=== PATIENT | male | born 1970 | race Caucasian/White ===

== ENCOUNTER → 2019-02-20 14:42 | Outpatient (POV) | payer OTHER, SELFPAY ==
[2019-02-20 14:55] VITALS: BP 142/89; PULSE 89; RESP 18; O2SAT 99
--- NOTE | 2019-02-20 15:57 | HMH.PMCON ---
Assessment and Plan (1) Bilateral knee pain Current visit: Yes Status: Chronic Category: Medical Code(s): M25.561 - Pain in right knee; M25.562 - Pain in left knee (2) Arthritis of both knees Current visit: Yes Status: Chronic Category: Medical Code(s): M17.0 - Bilateral primary osteoarthritis of knee - Assessment and plan all Dx Assessment and Plan for all problems:: We will schedule a geniculate block for the patient bilaterally. Patient may be a rhizotomy candidate. I will follow-up with the patient after his injection reassess his symptoms at that time. Patient and I discussed the diagnostic nature of this. He understands. He is been instructed to call the office if he has any issues prior to his next appointment. Dr. Wolf has reviewed this note and agrees with this plan of care. This note was dictated using voice recognition software and may contain errors or omissions HPI - Data of Consult Consult date: 02/20/19 Requesting Physician: Lennie Perez APRN Primary Care Provider: Susan Dorsey MD - Consult Narrative Reason for consult: Arthritis, bilateral knee pain History of present illness: Mr. Carrasco is a 48 year old male who presents today for consultation in regards to his low back and knee pain. Patient is having quite a bit of knee pain especially when he sitting. Patient states bracing does help. Patient had a discectomy in 1994 he does have some low back pain. He states his worst pain is his bilateral knee pain. Patient is been seen by Ortho and was given injections with no real relief. Patient was not a candidate for surgery. He rates his pain today a 5 out of 10. Patient is tried and failed physical therapy along with TENS unit gabapentin Motrin and Relafen. CC: Lennie Perez APRN [facility] History I have reviewed the patient's past medical history: Yes Medical History: Reports:: Hypertension *Have you ever received a pneumonia vaccine?: Yes *Have you received a flu vaccine this season?: Yes - *Social History Smoking Status: Never smoker Alcohol Intake: never *Occupational Status:: other Housing: house *Travel in the last 8 weeks: None - Psychiatric History Expresses thoughts of harming self/others: None Suicide Plan Description: No Plan Family Hx:: Unable to obtain Review of Systems - Review of Systems ROS General: no recent weight change, no fever, no sleep disturbances Respiratory: no cough, no shortness of air, no recurring pulmonary infections Cardiovascular/Peripheral Vascular: No chest pain, No palpitations, no edema, no shortness of breath. Gastrointestinal: no incontinence, normal bowel movements reported Genitourinary: no incontinence Musculoskeletal: Bilateral knee pain Psychiatric: normal mood/ affect Neurological: [denies weakness in extremities], [denies balance issues] Meds Home Medications Medication Instructions Recorded Confirmed Type Fluticasone Propionate 16 gm NOSTRIL-B DAILY 02/20/19 02/20/19 History Montelukast Sodium [Montelukast 10 mg PO DAILY 02/20/19 02/20/19 History 10mg Tab] Tramadol HCl [Tramadol 50mg 50 mg PO DAILY 02/20/19 02/20/19 History Tab] Allergies Allergy/AdvReac Type Severity Reaction Status Date / Time No Known Drug Allergies Allergy Verified 02/20/19 15:33 Objective Vital signs: Pulse Resp BP Pulse Ox 89 18 142/89 H 99 02/20/19 14:55 02/20/19 14:55 02/20/19 14:55 02/20/19 14:55 Narrative: Physical Exam General: Alert and oriented x3, no acute distress, pleasant and cooperative Lungs: Resps E/U, Symmetrical chest expansion, Eyes: PERRL Musculoskeletal: Flexion and extension bilateral knees somewhat guarded secondary to pain, deep tendon reflexes normal, strength in upper and lower extremities [5/5], [abnormal gait noted] Neurological: speech clear, residential plumber equal, no gross sensory deficits Opioid Risk Tool - Opioid Risk Tool-Mal
--- NOTE | 2019-02-20 16:00 | P.CONS_ITS ---
Assessment and Plan (1) Bilateral knee pain Current visit: Yes Status: Chronic Category: Medical Code(s): M25.561 - Pain in right knee; M25.562 - Pain in left knee (2) Arthritis of both knees Current visit: Yes Status: Chronic Category: Medical Code(s): M17.0 - Bilateral primary osteoarthritis of knee - Assessment and plan all Dx Assessment and Plan for all problems:: We will schedule a geniculate block for the patient bilaterally. Patient may be a rhizotomy candidate. I will follow-up with the patient after his injection reassess his symptoms at that time. Patient and I discussed the diagnostic nature of this. He understands. He is been instructed to call the office if he has any issues prior to his next appointment. Dr. Wolf has reviewed this note and agrees with this plan of care. This note was dictated using voice recognition software and may contain errors or omissions HPI - Data of Consult Consult date: 02/20/19 Requesting Physician: Lennie Perez APRN Primary Care Provider: Susan Dorsey MD - Consult Narrative Reason for consult: Arthritis, bilateral knee pain History of present illness: Mr. Carrasco is a 48 year old male who presents today for consultation in regards to his low back and knee pain. Patient is having quite a bit of knee pain especially when he sitting. Patient states bracing does help. Patient had a discectomy in 1994 he does have some low back pain. He states his worst pain is his bilateral knee pain. Patient is been seen by Ortho and was given injections with no real relief. Patient was not a candidate for surgery. He rates his pain today a 5 out of 10. Patient is tried and failed physical therapy along with TENS unit gabapentin Motrin and Relafen. CC: Lennie Perez APRN [facility] History I have reviewed the patient's past medical history: Yes Medical History: Reports:: Hypertension *Have you ever received a pneumonia vaccine?: Yes *Have you received a flu vaccine this season?: Yes - *Social History Smoking Status: Never smoker Alcohol Intake: never *Occupational Status:: other Housing: house *Travel in the last 8 weeks: None - Psychiatric History Expresses thoughts of harming self/others: None Suicide Plan Description: No Plan Family Hx:: Unable to obtain Review of Systems - Review of Systems ROS General: no recent weight change, no fever, no sleep disturbances Respiratory: no cough, no shortness of air, no recurring pulmonary infections Cardiovascular/Peripheral Vascular: No chest pain, No palpitations, no edema, no shortness of breath. Gastrointestinal: no incontinence, normal bowel movements reported Genitourinary: no incontinence Musculoskeletal: Bilateral knee pain Psychiatric: normal mood/ affect Neurological: [denies weakness in extremities], [denies balance issues] Meds Home Medications Medication Instructions Recorded Confirmed Type Fluticasone Propionate 16 gm NOSTRIL-B DAILY 02/20/19 02/20/19 History Montelukast Sodium [Montelukast 10 mg PO DAILY 02/20/19 02/20/19 History 10mg Tab] Tramadol HCl [Tramadol 50mg 50 mg PO DAILY 02/20/19 02/20/19 History Tab] Allergies Allergy/AdvReac Type Severity Reaction Status Date / Time No Known Drug Allergies Allergy Verified 02/20/19 15:33 Objective Vital signs:
--- NOTE | 2019-03-10 15:26 | PC.PHONENOTE ---
Patient is aware of injection date and time change.
== END ==
PROVIDERS: PCP Family Medicine; Visit Provider Clinical Nurse Specialist Family Health
DX: M25.561 Pain in right knee (principal); M17.0 Bilateral primary osteoarthritis of knee

== ENCOUNTER → 2019-09-22 06:57 | Outpatient (CLI) | payer OTHER, SELFPAY ==
--- NOTE | 2019-09-22 | CA_ITS ---
APPROVED REPORT Exam: Exercise Treadmill Technologist: lauren jackson, Ht: 5 ft 9 in Wt: 250 lbs BSA: 2.27 m2 HR: 69 bpm BP: 133/83 mmHg Rhythm: NSR Indications: CP, SOB Medical History Medications: Metoprolol,,,,, Flonase,,,,, Tramadol,,,,, Montelukast,,,,, ClARITin,,,,, GlUCOsamine,,,,, RoSUVASTATIN,,,,, Allergies: No known drug allergies Cardiac Risk Factors: HTN, Hyperlipidemia, FHX of CAD Stress Test Details Test: Eulogio HR Resting HR: 78 bpm Max Heart Rate (APMHR): 173 bpm Max HR Achieved: 162 bpm Target HR (85% APMHR): 147 bpm % of APMHR: 93 Recovery HR: 121 bpm BP Resting BP: 133.0/83.0 mmHg Max BP: 188/80 mmHg Recovery BP: 175.0/87.0 mmHg ECG Resting ECG: NSR Clinical Reason for Termination: Leg Pain, SOA Exercise duration: 09:00 min Highest Stage Achieved: Exercise capacity: 10.1 METs Stress ECG Conclusion Test stopped due to leg calves tight. No CP or SOA. No arrhythmias or ectopy. Less than 1.5mm ST segment depression inferiolaterally. Negative stress test Electronically signed by : Fidel Nogueira, 09/22/2019 12:59:05
--- NOTE | 2019-09-22 07:05 | NM_ITS ---
APPROVED REPORT Exam: Nuclear Stress Test Indication: Chest pain, SOB, HTN, High cholesterol, Family history Patient Location: Outpatient Stress Tech: Sheryl Ivette MT Tech:Micaela Morales, ARRT, RT (R)(N) Ht: 5 ft 9 in Wt: 250 lbs HR: 69 bpm BP: 133/83 mmHg BSA: 2.27 m2 BMI: 36.9 History: Chest pain, SOB, HTN, High cholesterol, Family history Procedure: Patient exercised on Eulogio protocol 9:00 minutes and sec, resting heart rate 69 bpm, resting blood pressure 133/83 mmHg, with exercise maximum heart rate achived was 162 bpm which is Less than 85 % of the maximum predicted heart rate and blood pressure was 178/80 mmHg. Test was stopped due to leg and calves tight. Patient denied any complaint of chest pain. Patient has Good exercise capacity, achieved 10.1 METs of workload on treadmill, the blood pressure response to exercise was Adequate. Electrocardiogram Resting electrocardiogram shows sinus rhythm, with exercise there is less than 1.[address] segment depression noted from the baseline EKG. The EKG portion of the exercise Myoview is negative for ischemia. Cardiac Stress and Resting SPECT Images: Cardiac Stress and Resting SPECT images were obtained using technetium 99m Myoview 31.8 mCi stress and 10.12 mCi at rest. Gated SPECT with analysis of segmental wall motion and calculation of the ejection fraction also done. Cardiac stress and resting SPECT images show uniform myocardial activity without segmental perfusion abnormality, computer derived ejection fraction is over 65% with no regional wall motion abnormality, right ventricle is normal size and contractility. Conclusion: 1. The EKG portion of the exercise Myoview is negative for ischemia, patient has good exercise capacity achieved 10.1 mets of workload on treadmill, the blood pressure response to exercise was adequate, there was no exercise-induced chest discomfort. 2. No scintigraphic evidence of reversible ischemia seen, computer derived ejection fraction is over 65% with no regional wall motion abnormality, right ventricle is normal size and contractility. 3. Normal exercise Myoview study. Electronically signed by : Fidel Nogueira, 09/22/2019 13:03:53
--- NOTE | 2019-09-22 07:23 | HMH.ITSHM ---
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 []GLUCOSAMINE LORATADINE TRAMADOL COQ10 FLONASE FISH OIL RASUVASTATIN METOPROLOL MONTELUKAST
== END ==
PROVIDERS: PCP Family Medicine; Visit Provider Family Medicine
DX: R07.89 Other chest pain (principal)
CPT/HCPCS: 78452; 93017; A9502

== ENCOUNTER → 2020-03-19 15:09 | Outpatient (CLI) | payer OTHER, SELFPAY ==
--- NOTE | 2020-03-19 15:27 | US_ITS ---
PROCEDURE: US CHEST CLINICAL INDICATION: RT BREAST PAIN COMPARISON: No exams were available for comparison FINDINGS: In the retroareolar region there is a irregular hypoechoic region consistent with mild gynecomastia. No other significant anomalies are evident. IMPRESSION: Mild right-sided gynecomastia Dictated by: Mars Weathers MD 03/19/2020 16:55 Electronically signed by Mars Weathers MD in [place] 03/19/2020 16:55
== END ==
PROVIDERS: PCP Family Medicine; Visit Provider Nurse Practitioner Family
DX: N64.4 Mastodynia (principal)
CPT/HCPCS: 76604

== ENCOUNTER → 2020-11-19 12:10 | Outpatient (CLI) | payer OTHER, SELFPAY ==
--- NOTE | 2020-11-19 12:16 | XR_ITS ---
PROCEDURE: XR SINUS MIN 3V CLINICAL INDICATION: SINUS PRESSURE AND PAIN COMPARISON: No exams were available for comparison FINDINGS: There are no air-fluid levels in the paranasal sinuses. Lateral view raises possibility of focal mucosal prominence at the maxillary sinuses but is more likely and overlying soft tissue outside the sinuses. Mastoid air cells are partly seen and there is no obvious mastoiditis. Nasal septum is midline. There is prominence of the right turbinates which narrow the drainage pathways for the paranasal sinuses although this may be transient. IMPRESSION: No acute sinusitis. Dictated by: Analisa Richards MD 11/19/2020 16:07 Analisa Richards MD in [place] 11/19/2020 16:07
== END ==
PROVIDERS: PCP Family Medicine; Visit Provider Family Medicine
DX: J30.9 Allergic rhinitis, unspecified (principal)
CPT/HCPCS: 70220

== ENCOUNTER → 2021-04-21 16:39 | Outpatient (CLI) | payer OTHER, SELFPAY ==
[2021-04-21 17:05] LABS: Adenovirus,PCR Not Detected (NotDetected); Bordetella Pertussis Not Detected (NotDetected); Chlamydophila Pneumoniae, PCR Not Detected (NotDetected); Coronavirus 19, PCR Not Detected (NotDetected); Coronavirus 229E Not Detected (NotDetected); Coronavirus NL63 Not Detected (NotDetected); Coronavirus OC43 Not Detected (NotDetected); Coronovirus HKU1,PCR Not Detected (NotDetected); Human Metapneumovirus Not Detected (NotDetected); Influenza A, PCR Not Detected (NotDetected); Influenza AH1, 2009 Not Detected (NotDetected); Influenza AH1, PCR Not Detected (NotDetected); Influenza AH3,PCR Not Detected (NotDetected); Influenza B, PCR Not Detected (NotDetected); Mycoplasma Pneumoniae, PCR Not Detected (NotDetected); Parainfluenza 1, PCR Not Detected (NotDetected); Parainfluenza 2, PCR Not Detected (NotDetected); Parainfluenza 3, PCR Not Detected (NotDetected); Parainfluenza 4, PCR Not Detected (NotDetected); Respiratory Syncytial Virus Not Detected (NotDetected); Rhinovirus/Enterovirus Not Detected (NotDetected)
== END ==
PROVIDERS: PCP Nurse Practitioner; Visit Provider Nurse Practitioner
DX: Z20.822 Contact with and (suspected) exposure to COVID-19 (principal)
CPT/HCPCS: 87581; 87633; 87798

== ENCOUNTER → 2021-11-04 15:58 | Outpatient (CLI) | payer OTHER, SELFPAY ==
[2021-11-04 17:06] LABS: Basophils # 0.1 K/mm3 (0-0.2); Basophils % 1.1 % (0.1-2.0); Eosinophils # 0.2 K/mm3 (0.0-0.4); Eosinophils % 2.4 % (0.1-12.0); Hematocrit 40.3 % (42.0-52.0); Lymphocytes # 3.5 K/mm3 (0.7-4.5); Lymphocytes % 35.1 % (10-50); Mean Corpuscular HGB Conc 32.3 g/dL (31.8-35.4); Mean Corpuscular Hemoglobin 29.8 pg (27.0-31.2); Mean Corpuscular Volume 92.3 fl (80-94); Mean Platelet Volume 8.7 fl (7.4-10.4); Monocytes # 0.4 K/mm3 (0.1-1.0); Monocytes % 4.3 % (1.7-9.3); Neutrophils # 5.7 K/mm3 (1.8-7.8); Neutrophils % 57.1 % (37.0-80.0); Platelet Count 283 K/mm3 (142-424); Red Blood Count 4.37 M/mm3 (4.60-6.20); Red Cell Distribution Width 13.2 % (11.5-17.5)
[2021-11-04 17:23] LABS: Alanine Aminotransferase 28 U/L (12-78); Albumin Level 4.6 g/dl (3.5-5.0); Albumin/Globulin Ratio 1.7 (1.1-1.8); Alkaline Phosphatase 45 U/L (38-126); Aspartate Amino Transferase 26 U/L (17-59); Bilirubin,Total 0.4 mg/dl (0.2-1.3); Blood Urea Nitrogen 18 mg/dl (9-20); Carbon Dioxide 27 mmol/L (22.0-30.0); Chloride 105 mmol/L (98-107); Estimated Glomerular Filt Rate 89 ml/min (>60); GFR (African American) 108 ML/MIN (>60); Globulin 2.7 g/dL (1.3-3.2); Glucose 107 mg/dl (74-100); Sodium 140 mmol/L (136-145); Total Protein,Serum 7.3 g/dl (6.3-8.2)
[2021-11-04 17:28] LABS: C-Reactive Protein 4.8 mg/L (0-4)
[2021-11-04 17:54] LABS: Thyroid Stimulating Hormone 1.04 uIU/mL (0.465-4.68)
[2021-11-04 18:00] LABS: 25-OH Vitamin D, Total 73.8 ng/mL (30-100)
[2021-11-04 18:29] LABS: Vitamin B12 842 pg/mL (239-931)
[2021-11-04 18:36] LABS: Erythrocyte Sedimentation Rate 38 mm/hr (0-15)
[2021-11-04 18:37] LABS: Folate 6.91 ng/mL
[2021-11-06 15:11] LABS: Sjogren's Anti-SS-A <0.2 AI (0.0-0.9); Sjogren's Anti-SS-B <0.2 AI (0.0-0.9)
[2021-11-06 23:17] LABS: Anti-Cyclic Citrullinated Pept 3 units (0-19)
[2021-11-28 17:03] LABS: Antinuclear Antibodies (ANA) NEGATIVE
== END ==
PROVIDERS: PCP Family Medicine; Visit Provider Internal Medicine Rheumatology
DX: M06.4 Inflammatory polyarthropathy (principal); M25.50 Pain in unspecified joint; M19.90 Unspecified osteoarthritis, unspecified site; R53.83 Other fatigue; R53.1 Weakness; H04.123 Dry eye syndrome of bilateral lacrimal glands
CPT/HCPCS: 36415; 80053; 82306; 82607; 82746; 84443; 85025; 85651; 86038; 86140; 86200; 86235; 86431

== ENCOUNTER → 2021-11-14 18:17 | Outpatient (CLI) | payer OTHER, SELFPAY | PROVIDERS: PCP Family Medicine; Visit Provider Nurse Practitioner | DX: G47.33 Obstructive sleep apnea (adult) (pediatric) (principal) | CPT/HCPCS: 95806 ==

== ENCOUNTER → 2021-12-22 19:49 | Outpatient (CLI) | payer OTHER, SELFPAY | PROVIDERS: PCP Nurse Practitioner; Visit Provider Nurse Practitioner | DX: G47.30 Sleep apnea, unspecified (principal); R06.83 Snoring; I10 Essential (primary) hypertension; R40.0 Somnolence; G47.00 Insomnia, unspecified | CPT/HCPCS: 95810 ==

== ENCOUNTER → 2022-06-22 07:18 | Outpatient (CLI) | payer OTHER, SELFPAY ==
[2022-06-22 18:31] LABS: MANUAL DIFFERENTIAL MANUAL DIFFERENTIAL (MANUAL DIFF)
[2022-06-22 19:43] LABS: Basophils # 0.3 K/mm3 (0-0.2); Basophils % 2.3 % (0.1-2.0); Eosinophils # 0.3 K/mm3 (0.0-0.4); Hematocrit 43.8 % (42.0-52.0); Hemoglobin 14.2 g/dL (14.1-18.0); Lymphocytes # 3.3 K/mm3 (0.7-4.5); Lymphocytes % 24.9 % (10-50); Mean Corpuscular HGB Conc 32.4 g/dL (31.8-35.4); Mean Corpuscular Hemoglobin 30.1 pg (27.0-31.2); Mean Corpuscular Volume 92.9 fl (80-94); Mean Platelet Volume 9.1 fl (7.4-10.4); Monocytes # 0.5 K/mm3 (0.1-1.0); Neutrophils # 8.8 K/mm3 (1.8-7.8); Neutrophils % 66.9 % (37.0-80.0); Platelet Count 439 K/mm3 (142-424); Red Blood Count 4.72 M/mm3 (4.60-6.20); Red Cell Distribution Width 13.1 % (11.5-17.5); White Blood Count 13.2 K/mm3 (4.8-10.8)
[2022-06-22 20:45] LABS: Alanine Aminotransferase 27 U/L (12-78); Albumin Level 4.6 g/dl (3.5-5.0); Albumin/Globulin Ratio 1.6 (1.1-1.8); Alkaline Phosphatase 68 U/L (38-126); Anion Gap 19.9 mEq/L (5-15); Aspartate Amino Transferase 27 U/L (17-59); Bilirubin,Total 0.4 mg/dl (0.2-1.3); Blood Urea Nitrogen 12 mg/dl (9-20); Calcium 9.9 mg/dl (8.4-10.2); Carbon Dioxide 27 mmol/L (22.0-30.0); Chloride 91 mmol/L (98-107); Estimated Glomerular Filt Rate 102 ml/min (>60); GFR (African American) 124 ML/MIN (>60); Globulin 2.8 g/dL (1.3-3.2); Glucose 143 mg/dl (74-100); Magnesium 1.8 mg/dl (1.6-2.3); Potassium 4.9 mmoL/L (3.5-5.1); Sodium 133 mmol/L (136-145); Total Protein,Serum 7.4 g/dl (6.3-8.2)
[2022-06-22 21:15] LABS: Thyroid Stimulating Hormone 0.83 uIU/mL (0.465-4.68)
[2022-06-23 00:50] LABS: Lymphocytes % 39 % (10-50); Monocytes % 5 % (2-9); Neutrophils % 56 % (42-76); Total Cells Counted 100
[2022-06-23 00:51] LABS: Platelet Estimate Normal; Tear Drop Cells 1+
== END ==
PROVIDERS: PCP Family Medicine; Visit Provider Family Medicine
DX: R42 Dizziness and giddiness (principal); R20.2 Paresthesia of skin; I10 Essential (primary) hypertension
CPT/HCPCS: 80053; 83735; 84443; 85007; 85014; 85018; 85048; 85049

== ENCOUNTER → 2023-02-04 19:55 | Outpatient (CLI) | payer OTHER, SELFPAY ==
[2023-02-04 18:13] LABS: Chloride 91 mmol/L (98-107); Potassium 4.8 mmoL/L (3.5-5.1); Sodium 133 mmol/L (136-145)
[2023-02-04 18:15] LABS: Blood Urea Nitrogen 16 mg/dl (9-20); Estimated Glomerular Filt Rate 102 ml/min (>60); GFR (African American) 123 ML/MIN (>60)
[2023-02-04 18:16] LABS: Alanine Aminotransferase 39 U/L (12-78); Albumin Level 4.2 g/dl (3.5-5.0); Albumin/Globulin Ratio 1.6 (1.1-1.8); Alkaline Phosphatase 51 U/L (38-126); Anion Gap 17.8 mEq/L (5-15); Aspartate Amino Transferase 31 U/L (17-59); Bilirubin,Total 0.7 mg/dl (0.2-1.3); Calcium 9.6 mg/dl (8.4-10.2); Carbon Dioxide 29 mmol/L (22.0-30.0); Globulin 2.6 g/dL (1.3-3.2); Glucose 198 mg/dl (74-100); Total Protein,Serum 6.8 g/dl (6.3-8.2)
[2023-02-04 18:24] LABS: Basophils # 0.1 K/mm3 (0-0.2); Basophils % 0.5 % (0.1-2.0); Eosinophils # 0.3 K/mm3 (0.0-0.4); Eosinophils % 2.5 % (0.1-12.0); Hematocrit 40.2 % (42.0-52.0); Hemoglobin 12.9 g/dL (14.1-18.0); Lymphocytes # 3.2 K/mm3 (0.7-4.5); Lymphocytes % 25.3 % (10-50); Mean Corpuscular HGB Conc 32.2 g/dL (31.8-35.4); Mean Corpuscular Hemoglobin 30.1 pg (27.0-31.2); Mean Corpuscular Volume 93.4 fl (80-94); Mean Platelet Volume 8.2 fl (7.4-10.4); Monocytes # 0.6 K/mm3 (0.1-1.0); Monocytes % 4.7 % (1.7-9.3); Neutrophils # 8.6 K/mm3 (1.8-7.8); Platelet Count 296 K/mm3 (142-424); Red Cell Distribution Width 13.5 % (11.5-17.5); White Blood Count 12.8 K/mm3 (4.8-10.8)
[2023-02-14 17:55] LABS: 1,25 Dihydroxy Vitamin D 48 pg/mL (.); 1,25-Dihydroxy, Vitamin D-2 <10 pg/mL (.); 1,25-Dihydroxy, Vitamin D-3 48 pg/mL (.)
== END ==
PROVIDERS: PCP Nurse Practitioner; Visit Provider Nurse Practitioner
DX: E55.9 Vitamin D deficiency, unspecified (principal); I10 Essential (primary) hypertension
CPT/HCPCS: 80053; 82652; 85025

== ENCOUNTER → 2023-08-06 11:54 | Outpatient (CLI) | payer OTHER, SELFPAY ==
[2023-08-08 08:16] LABS: Testosterone,Total 103 ng/dL (264-916)
== END ==
PROVIDERS: PCP Nurse Practitioner; Visit Provider Family Medicine
DX: M62.838 Other muscle spasm (principal)
CPT/HCPCS: 84403

== ENCOUNTER 2023-11-05 22:45 | Outpatient (CLI) | payer OTHER, SELFPAY ==
[2023-11-05 18:20] LABS: Basophils # 0.1 K/mm3 (0-0.2); Basophils % 0.5 % (0.1-2.0); Eosinophils % 0.2 % (0.1-12.0); Hematocrit 43.4 % (42.0-52.0); Hemoglobin 14.8 g/dL (14.1-18.0); Lymphocytes # 2.4 K/mm3 (0.7-4.5); Lymphocytes % 14.8 % (10-50); MANUAL DIFFERENTIAL MANUAL DIFFERENTIAL (MANUAL DIFF); Mean Corpuscular HGB Conc 34.1 g/dL (31.8-35.4); Mean Corpuscular Hemoglobin 31.4 pg (27.0-31.2); Mean Corpuscular Volume 92.3 fl (80-94); Mean Platelet Volume 9.7 fl (7.4-10.4); Monocytes # 0.7 K/mm3 (0.1-1.0); Monocytes % 4.5 % (1.7-9.3); Neutrophils # 12.8 K/mm3 (1.8-7.8); Neutrophils % 80.2 % (37.0-80.0); Platelet Count 356 K/mm3 (142-424); Red Blood Count 4.71 M/mm3 (4.60-6.20); Red Cell Distribution Width 13.4 % (11.5-17.5)
[2023-11-05 18:23] LABS: Alanine Aminotransferase 41 U/L (12-78); Albumin Level 4.7 g/dl (3.5-5.0); Albumin/Globulin Ratio 1.5 (1.1-1.8); Alkaline Phosphatase 61 U/L (38-126); Anion Gap 15.5 mEq/L (5-15); Aspartate Amino Transferase 30 U/L (17-59); Bilirubin,Total 0.4 mg/dl (0.2-1.3); Blood Urea Nitrogen 15 mg/dl (9-20); Carbon Dioxide 22 mmol/L (22.0-30.0); Chloride 103 mmol/L (98-107); Cholesterol 296 mg/dl (140-200); Estimated Glomerular Filt Rate 118 ml/min (>60); GFR (African American) 143 ML/MIN (>60); Globulin 3.1 g/dL (1.3-3.2); Glucose 174 mg/dl (74-100); HDL Cholesterol 33 mg/dl (40-60); Potassium 4.5 mmoL/L (3.5-5.1); Sodium 136 mmol/L (136-145); Total Protein,Serum 7.8 g/dl (6.3-8.2); Triglycerides 118 mg/dl (30-150); VLDL Cholesterol 24 mg/dL (0-40)
[2023-11-05 18:34] LABS: Direct LDL Cholesterol 213.42 mg/dL (100-129)
[2023-11-05 18:41] LABS: Hemoglobin A1C 7.3 % (4.0-6.0)
[2023-11-05 18:54] LABS: Lymphocytes % 15 % (10-50); Monocytes % 4 % (2-9); Neutrophils % 81 % (42-76); Platelet Estimate Normal; Prostate Specific Ag Screen 0.5 ng/ml (0.0-4.0); RBC Morphology Normal; Thyroid Stimulating Hormone 0.79 uIU/mL (0.465-4.68); Total Cells Counted 100
== END 2023-11-05 23:59 ==
LOC: LAB.DROPOF 22:45
PROVIDERS: PCP Family Medicine; Visit Provider Family Medicine
DX: I10 Essential (primary) hypertension (principal); Z12.5 Encounter for screening for malignant neoplasm of prostate; Z79.899 Other long term (current) drug therapy
CPT/HCPCS: 80053; 80061; 83036; 84443; 85007; 85025; G0103

== ENCOUNTER 2024-01-27 14:29 | Outpatient (CLI) | payer OTHER, SELFPAY ==
[2024-01-29 07:41] LABS: Testosterone,Total 233 ng/dL (264-916)
== END 2024-01-27 23:59 | disposition home or self-care (01) ==
LOC: LAB.DROPOF 01-28 14:29
PROVIDERS: PCP Family Medicine; Visit Provider Family Medicine
DX: E34.9 Endocrine disorder, unspecified (principal); E29.1 Testicular hypofunction
CPT/HCPCS: 84403

== ENCOUNTER → 2024-02-02 12:58 | Outpatient (CLI) | payer OTHER, SELFPAY | LOC: SL 02-04 12:58 | PROVIDERS: PCP Nurse Practitioner Family; Visit Provider Nurse Practitioner Family | DX: G47.33 Obstructive sleep apnea (adult) (pediatric) (principal) | CPT/HCPCS: 95806 ==

== ENCOUNTER 2024-02-14 10:50 | Outpatient (CLI) | payer OTHER, SELFPAY ==
[2024-02-14 17:52] LABS: Coronavirus 19, PCR Not Detected (NotDetected); Influenza A, PCR Not Detected (NotDetected); Influenza B, PCR Not Detected (NotDetected)
== END 2024-02-14 23:59 | disposition home or self-care (01) ==
LOC: LAB.DROPOF 02-16 10:51
PROVIDERS: PCP Nurse Practitioner; Visit Provider Nurse Practitioner
DX: J06.9 Acute upper respiratory infection, unspecified (principal); R51.9 Headache, unspecified; J02.9 Acute pharyngitis, unspecified; H92.01 Otalgia, right ear; R06.09 Other forms of dyspnea; R06.2 Wheezing
CPT/HCPCS: 87636

== ENCOUNTER 2024-03-27 17:14 | Outpatient (CLI) | payer OTHER, SELFPAY ==
--- NOTE | 2024-03-27 17:23 | XR_ITS ---
PROCEDURE INFORMATION: Exam: XR Lumbosacral Spine Exam date and time: 03/27/2024 5:25 PM Age: 53 years old Clinical indication: Low back pain; Additional info: Left low back pain with sciatica, HX lumbar ddd TECHNIQUE: Imaging protocol: Radiologic exam of the lumbosacral spine. Views: 2 or 3 views. COMPARISON: No relevant prior studies available. FINDINGS: Bones/joints: No acute fracture or dislocation. Soft tissues: Unremarkable. IMPRESSION: No acute fracture or dislocation.
--- NOTE | 2024-03-27 17:23 | XR_ITS ---
PROCEDURE INFORMATION: Exam: XR Right Shoulder Exam date and time: 03/27/2024 5:25 PM Age: 53 years old Clinical indication: Pain; Shoulder; Right; Additional info: Right shoulder pain TECHNIQUE: Imaging protocol: Radiologic exam of the right shoulder. Views: 2 or more views. COMPARISON: No relevant prior studies available. FINDINGS: Bones/joints: No acute fracture or dislocation. Soft tissues: Normal. IMPRESSION: No acute fracture or dislocation.
== END 2024-03-27 23:59 | disposition home or self-care (01) ==
LOC: RAD 17:17
PROVIDERS: PCP Nurse Practitioner; Visit Provider Nurse Practitioner
DX: M54.42 Lumbago with sciatica, left side (principal); M25.511 Pain in right shoulder
CPT/HCPCS: 72100; 73030

== ENCOUNTER 2024-06-02 16:46 | Outpatient (CLI) | payer OTHER, SELFPAY | END 2024-06-02 23:59 | disposition home or self-care (01) | LOC: RT 16:48 | PROVIDERS: PCP Nurse Practitioner; Visit Provider Specialist | DX: G47.33 Obstructive sleep apnea (adult) (pediatric) (principal); G47.26 Circadian rhythm sleep disorder, shift work type | CPT/HCPCS: 94762 ==

== ENCOUNTER 2024-07-26 13:17 | Outpatient (CLI) | payer OTHER, SELFPAY ==
[2024-07-26 19:30] LABS: HIV (1&2) Antibody Rapid NONREACTIVE (NONREACTIVE)
[2024-07-28 05:56] LABS: HCV Ab Non Reactive (Non Reactive)
== END 2024-07-26 23:59 | disposition home or self-care (01) ==
LOC: LAB.DROPOF 07-27 13:17
PROVIDERS: PCP Nurse Practitioner; Visit Provider Nurse Practitioner
DX: Z11.59 Encounter for screening for other viral diseases (principal); Z11.4 Encounter for screening for human immunodeficiency virus [HIV]
CPT/HCPCS: 86803; 87389

== ENCOUNTER 2024-09-07 15:20 | Outpatient (CLI) | payer OTHER, SELFPAY ==
[2024-09-07 18:21] LABS: Basophils # 0.1 K/mm3 (0-0.2); Basophils % 0.6 % (0.1-2.0); Eosinophils # 0.2 K/mm3 (0.0-0.4); Eosinophils % 1.1 % (0.1-12.0); Hematocrit 48.8 % (42.0-52.0); Hemoglobin 15.8 g/dL (14.1-18.0); Lymphocytes # 2.9 K/mm3 (0.7-4.5); Lymphocytes % 19.6 % (10-50); Mean Corpuscular HGB Conc 32.4 g/dL (31.8-35.4); Mean Corpuscular Hemoglobin 29.3 pg (27.0-31.2); Mean Corpuscular Volume 90.4 fl (80-94); Mean Platelet Volume 8.7 fl (7.4-10.4); Monocytes # 0.7 K/mm3 (0.1-1.0); Neutrophils % 73.8 % (37.0-80.0); Platelet Count 312 K/mm3 (142-424); Red Cell Distribution Width 13.9 % (11.5-17.5); White Blood Count 14.9 K/mm3 (4.8-10.8)
[2024-09-07 19:07] LABS: Chloride 104 mmol/L (98-107); Potassium 5.2 mmoL/L (3.5-5.1); Sodium 138 mmol/L (136-145)
[2024-09-07 19:10] LABS: Anion Gap 11.2 mEq/L (5-15); Blood Urea Nitrogen 11 mg/dl (9-20); Calcium 9.7 mg/dl (8.4-10.2); Carbon Dioxide 28 mmol/L (22.0-30.0); Estimated Glomerular Filt Rate 102 ml/min (>60); GFR (African American) 123 ML/MIN (>60); Glucose 160 mg/dl (74-100)
== END 2024-09-07 23:59 | disposition home or self-care (01) ==
LOC: LAB.DROPOF 09-08 13:37
PROVIDERS: PCP Nurse Practitioner; Visit Provider Nurse Practitioner
DX: Z01.818 Encounter for other preprocedural examination (principal); M54.42 Lumbago with sciatica, left side
CPT/HCPCS: 80048; 85025

== ENCOUNTER 2024-09-18 15:30 | Outpatient (CLI) | payer OTHER, SELFPAY ==
--- NOTE | 2024-09-18 15:50 | CT_ITS ---
FINAL REPORT TECHNIQUE: Thin section axial CT with coronal reconstruction without IV contrast This study was performed with techniques to keep radiation doses as low as reasonably achievable, (ALARA). Individualized dose reduction techniques using automated exposure control or adjustment of mA and/or kV according to the patient's size were employed. CLINICAL HISTORY: Nasal Congestion; can t hardly tolerate CPAP mask COMPARISON: None FINDINGS: CT SINUSES: There is a tiny mucous retention cyst in the anterior superior right maxillary sinus measuring 9 mm in size. The mastoid sinuses are clear. The OMCs are clear as well. There is mild left nasal septal deviation. IMPRESSION: Tiny mucous retention cyst anterior superior right maxillary sinus. Mild left nasal septal deviation. No evidence of sinusitis. Reviewed, Interpreted and Dictated by Susan Granados MD Transcribed by Lauren Mims Authenticated and [facility]
== END 2024-09-18 23:59 | disposition home or self-care (01) ==
LOC: RAD 15:31
PROVIDERS: PCP Nurse Practitioner; Visit Provider Nurse Practitioner
DX: R09.81 Nasal congestion (principal); R68.2 Dry mouth, unspecified
CPT/HCPCS: 70486

== ENCOUNTER 2025-01-10 16:14 | Outpatient (CLI) | payer OTHER, SELFPAY ==
[2025-01-10 19:47] LABS: Microalbumin/Creatinine Ratio 45.3
[2025-01-10 19:49] LABS: Creatinine,Urine Random 128 mg/dL (Not Estab.)
[2025-01-10 20:03] LABS: Alanine Aminotransferase 34 U/L (12-78); Albumin Level 4.3 g/dl (3.5-5.0); Alkaline Phosphatase 65 U/L (38-126); Anion Gap 16.6 mEq/L (5-15); Aspartate Amino Transferase 28 U/L (17-59); Basophils # 0.1 K/mm3 (0-0.2); Basophils % 0.5 % (0.1-2.0); Bilirubin,Total 0.4 mg/dl (0.2-1.3); Blood Urea Nitrogen 12 mg/dl (9-20); Calcium 9.4 mg/dl (8.4-10.2); Carbon Dioxide 24 mmol/L (22.0-30.0); Chloride 100 mmol/L (98-107); Eosinophils # 0.3 K/mm3 (0.0-0.4); Eosinophils % 2.6 % (0.1-12.0); Estimated Glomerular Filt Rate 118 ml/min (>60); GFR (African American) 143 ML/MIN (>60); Glucose 162 mg/dl (74-100); Hematocrit 44.1 % (42.0-52.0); Hemoglobin 14.7 g/dL (14.1-18.0); Lymphocytes # 3.4 K/mm3 (0.7-4.5); Lymphocytes % 28.1 % (10-50); Mean Corpuscular HGB Conc 33.3 g/dL (31.8-35.4); Mean Corpuscular Hemoglobin 28.6 pg (27.0-31.2); Mean Corpuscular Volume 85.8 fl (80-94); Monocytes # 0.7 K/mm3 (0.1-1.0); Monocytes % 5.4 % (1.7-9.3); Neutrophils # 7.7 K/mm3 (1.8-7.8); Neutrophils % 63.1 % (37.0-80.0); Nucleated Red Blood Cells # 0 10^3/uL; Nucleated Red Blood Cells % 0 %; Potassium 4.6 mmoL/L (3.5-5.1); Red Blood Count 5.14 M/mm3 (4.60-6.20); Red Cell Distribution Width-SD 40.3 fL; Sodium 136 mmol/L (136-145); White Blood Count 12.1 K/mm3 (4.8-10.8)
[2025-01-10 20:07] LABS: NT Pro Brain Natriuretic Pep. < 20.0 pg/mL (0-125)
[2025-01-10 20:12] LABS: Platelet Count 199 K/mm3 (142-424)
[2025-01-10 20:18] LABS: 25-OH Vitamin D, Total 26.6 ng/mL (30-100)
[2025-01-10 20:29] LABS: Prostate Specific Ag Screen 2.3 ng/ml (0.0-4.0); Thyroid Stimulating Hormone 1.02 uIU/mL (0.465-4.68)
[2025-01-10 20:48] LABS: Vitamin B12 223 pg/mL (239-931)
[2025-01-10 21:34] LABS: Albumin/Globulin Ratio 1.3 (1.1-1.8); Globulin 3.4 g/dL (1.3-3.2); Total Protein,Serum 7.7 g/dl (6.3-8.2)
[2025-01-10 21:53] LABS: Hemoglobin A1C 7.9 % (4.0-6.0)
[2025-01-12 08:22] LABS: Testosterone,Total 895 ng/dL (264-916)
== END 2025-01-10 23:59 | disposition home or self-care (01) ==
LOC: LAB.DROPOF 01-11 12:21
PROVIDERS: PCP Nurse Practitioner; Visit Provider Nurse Practitioner
DX: R60.0 Localized edema (principal); E55.9 Vitamin D deficiency, unspecified; E66.01 Morbid (severe) obesity due to excess calories; Z68.39 Body mass index [BMI] 39.0-39.9, adult; G47.33 Obstructive sleep apnea (adult) (pediatric); E11.69 Type 2 diabetes mellitus with other specified complication; E66.9 Obesity, unspecified; I10 Essential (primary) hypertension; E29.1 Testicular hypofunction
CPT/HCPCS: 80053; 82043; 82306; 82570; 82607; 83036; 83880; 84403; 84443; 85025; G0103

== ENCOUNTER 2025-01-11 13:19 | Outpatient (CLI) | payer OTHER, SELFPAY ==
--- NOTE | 2025-01-11 13:22 | XR_ITS ---
FINAL REPORT CLINICAL HISTORY: BLE edema soa, cough, congestion former smoker, quit 10 yrs ago FINDINGS: No acute pulmonary density is evident. There is no evidence of effusion or other pleural disease. The mediastinum has a normal appearance. The cardiac silhouette is unremarkable. IMPRESSION: Unremarkable chest exam. Reviewed, Interpreted and Dictated by Susan Granados MD Transcribed by Carey Thrasher Authenticated and [facility]
--- NOTE | 2025-01-11 14:45 | CA_ITS ---
APPROVED REPORT EXAM: Comprehensive 2D, Doppler, and color-flow Echocardiogram Pipeline Superintendent: Maral Victor RDCS Ht: 5 ft 9 in Wt: 253lbs BSA: 2.28 BP: 160/90 mmHg Indications: SOB,ARGUETA,EDEMA M-Mode Dimensions RVDd 2.77 cm (0.9-2.6) LA Diam 3.51 cm (1.9-4.0) LVDd 5.40 cm (3.5-5.7) LVDs 3.91 cm (3.5-5.7) IVSd 0.68 cm (0.6-1.1) PWd 0.91 cm (0.6-1.1) EF (Teich) 53.10% FS 27.60% EDV (Teich) 141.30 mL ESV (Teich) 66.30 mL LV Diastology E Decel Time 163 (160-240 msec) E/A Ratio 1.4 Mitral Valve MV E Max Agus. 65.0 (40-130 cm/s) MV A Velocity 48.0 (40-130 cm/s) E/A Ratio 1.34 MV PHT 48.0 ms Left Ventricle The left ventricle is normal size. The left ventricular systolic function is normal. The left ventricular ejection fraction is within the normal range. There is normal left ventricular wall thickness. There is normal LV segmental wall motion. The left ventricular diastolic function is normal. LVEF is 55%. Right Ventricle The right ventricle is normal size. The right ventricular systolic function is normal. Atria The left atrium size is normal. The right atrium size is normal. There is no Doppler evidence of interatrial shunt. The aortic valve is mildly thickened. Aortic Valve There is no aortic valvular stenosis. No aortic regurgitation is present. Mitral Valve The mitral valve is normal in structure. Trace mitral regurgitation. No evidence of mitral valve stenosis. Tricuspid Valve Tricuspid valve is grossly normal in structure and function. Trace tricuspid regurgitation. There is insufficient TR to estimate RVSP. Pulmonic Valve The pulmonary valve is normal in structure. Trace pulmonic regurgitation. Great Vessels The aortic root is normal in size. IVC is normal in size and collapses >50% with inspiration. Pericardium There is no pericardial effusion. Other Information Study Quality: Adequate Conclusion Normal biventricular systolic function. No significant valvular stenosis or regurgitation. Electronically signed by : Camilla Garcia MD 01/15/2025 13:12:23
== END 2025-01-11 23:59 | disposition home or self-care (01) ==
LOC: RT 13:20
PROVIDERS: PCP Nurse Practitioner; Visit Provider Nurse Practitioner
DX: R60.0 Localized edema (principal); R06.02 Shortness of breath; I10 Essential (primary) hypertension; G47.33 Obstructive sleep apnea (adult) (pediatric); R53.83 Other fatigue
CPT/HCPCS: 71046; 93306

== ENCOUNTER 2025-02-01 08:58 | Outpatient (CLI) | payer OTHER, SELFPAY ==
[2025-02-01 18:59] LABS: Alanine Aminotransferase 41 U/L (12-78); Albumin Level 4.6 g/dl (3.5-5.0); Albumin/Globulin Ratio 1.7 (1.1-1.8); Alkaline Phosphatase 57 U/L (38-126); Anion Gap 11.1 mEq/L (5-15); Aspartate Amino Transferase 32 U/L (17-59); Bilirubin,Total 0.4 mg/dl (0.2-1.3); Blood Urea Nitrogen 16 mg/dl (9-20); Calcium 9.8 mg/dl (8.4-10.2); Carbon Dioxide 27 mmol/L (22.0-30.0); Chloride 102 mmol/L (98-107); Chol/HDL Ratio 5.1 (1-3.5); Cholesterol 149 mg/dl (140-200); Estimated Glomerular Filt Rate 101 ml/min (>60); GFR (African American) 122 ML/MIN (>60); Globulin 2.7 g/dL (1.3-3.2); Glucose 171 mg/dl (74-100); HDL Cholesterol 29 mg/dl (40-60); Potassium 5.1 mmoL/L (3.5-5.1); Sodium 135 mmol/L (136-145); Total Protein,Serum 7.3 g/dl (6.3-8.2); Triglycerides 141 mg/dl (30-150); VLDL Cholesterol 28 mg/dL (0-40)
== END 2025-02-01 23:59 | disposition home or self-care (01) ==
LOC: LAB.DROPOF 02-02 12:30
PROVIDERS: PCP Nurse Practitioner; Visit Provider Nurse Practitioner
DX: I10 Essential (primary) hypertension (principal); E66.01 Morbid (severe) obesity due to excess calories; Z68.39 Body mass index [BMI] 39.0-39.9, adult; Z87.891 Personal history of nicotine dependence
CPT/HCPCS: 80053; 80061

== ENCOUNTER 2025-04-25 11:05 | Outpatient (CLI) | payer OTHER, SELFPAY ==
--- OUTSIDE RECORDS SUMMARY | 2025-04-25 13:20 | XMS_ITS | Encounter Summary ---
Author Organization [facility] Address [address] [place] [address] Care Team Providers Care Quality Improvement Coordinator (Rn) Name Role Phone Woodrow Dorsey MD Primary Care Provider [phone] [phone] Janice Jimenez MD Unavailable Reason for Referral * MRI/CAT Scan (Routine) - Pending Review Specialty Diagnoses / Procedures Referred By Contac t Referred To Contact Radiology Diagnoses Osteoarthritis of cervical spine, unspecified spinal osteoarthritis complication status Procedures MRI CERVICAL SPINE WO CONTRAST Janice Jimenez MD [address] [place] [address] Phone: tel: fax: Referral ID Status Reason Start Date Expiration Date V isits Requested Visits Authorized [id number] Pending Review 04/25/2025 04/25/2026 1 1 Reason for Visit * Reason Comments Osteoarthritis Encounter Details Date Type Department Care Team (Latest Contact Info) Description 04/25/2025 1:20 PM EDT Office Visit [facility] [address] [place] [address] Janice Jimenez MD [address] [place] [address] Fibromyalgia (Primary Dx); Osteoarthritis, generalized; Chronic bilateral low back pain with left-sided sciatica; FDC current use of systemic steroids; Encounter for long-term (current) use of high-risk medication; Primary osteoarthritis of right knee; Primary osteoarthritis of left knee; Osteoarthritis of cervical spine, unspecified spinal osteoarthritis complication status Social History Tobacco Use Types Packs/Day Years Used Date Smoking Tobacco: Former Passive Smoke Exposure: Past Smokeless Tobacco: Never Alcohol Use Standard Drinks/Week Comments No 0 (1 standard drink = 0.6 oz pur e alcohol) Sex and Gender Information Value Date Recorded Sex Assigned at Not on file Legal Sex Male 2:14 PM EDT Gender Identity Not on file Sexual Orientation Not on file documented as of this encounter Last Filed Vital Signs Vital Sign Reading Time Taken Comments Blood Pressure 128/88 04/25/2025 1:16 PM EDT Pulse - - Temperature 36.3 C (97.3 F) 04/25/2025 1:16 PM EDT Respiratory Rate - - Oxygen Saturation - - Inhaled Oxygen Concentration - - Weight 109.3 kg (241 lb) 04/25/2025 1:16 PM EDT Height 175.3 cm (5' 9 ) 04/25/2025 1:16 PM EDT Body Mass Index 35.59 04/25/2025 1:16 PM EDT documented in this encounter Progress Notes * Janice Jimenez MD - 04/25/2025 1:20 PM EDT Images from the original note were not included. Subjective Subjective: Patient ID: Alexi Carrasco is a 54 y.o. male. Chief Complaint Patient presents with Osteoarthritis HPI: Alexi Carrasco is a 54 y.o.male who presents for Follow up visit for generalised OA and fibromyalgia s/p 3 gelsyn injections in February 2023, bilateral knees-02/03/23, 02/10/23, 02/17/23 Events since last visit: - IM depomedrol 120 mg- 01/25/25 - he is on cymbalta 90 mg daily, gabapentin 300 mg bedtime, he feels achy and tired all the time. 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 The pain / function / disease activity questionnaire was filled out by the patient and reviewed with me. Function on mHAQ = 5 Pain on 10-cm VAS = 8 PTGL= 8 Disease Activity on RAPID 3 = 7 REVIEW OF SYSTEMS See HPI for further details. Review of systems otherwise negative. Past Medical History: Diagnosis Date Arthritis Hypertension Social History Tobacco Use Smoking status: Former Passive exposure: Past Smokeless tobacco: Never Substance Use Topics Alcohol use: No Family History Problem Relation Age of Onset COPD Mother Diabetes Father Coronary Art Dis Father Coronary Art Dis Brother COPD Maternal Aunt Allergies Allergen Reactions Aspirin Swelling Said throat swelled requiring steroid Penicillins Outpatient Medications Marked as Taking for the 04/25/25 encounter (Office Visit) with Janice Jimenez MD Medication Sig Dispense Refill acetaminophen (TYLENOL) 650 mg Oral Tablet Sustained Release Take 2 Tablets by mouth every morning. amLODIPine (NORVASC) 5 mg Oral Tablet Take 5 mg by mouth daily. cyanocobalamin 1,000 mcg Oral Tablet DULoxetine (CYMBALTA) 30 mg Oral Capsule, Delayed Release(E.C.) TAKE 1 CAPSULE BY MOUTH DAILY 30 Capsule 1 DULoxetine (CYMBALTA) 60 mg Oral Capsule, Delayed Release(E.C.) TAKE 1 CAPSULE BY MOUTH DAILY 30 Capsule 1 fluticasone propionate (FLONASE) 50 mcg/actuation Nasl [place], Suspension fUROsemide (LASIX) 40 mg Oral Tablet Take 40 mg by mouth daily as needed. for swelling gabapentin (NEURONTIN) 300 mg Oral Capsule TAKE 1 CAPSULE BY MOUTH AT BEDTIME FOR 3 DAYS, THEN 1 CAPSULE TWICE DAILY FOR 3 DAYS, THEN 1 CAPSULE 3 TIMES DAILY THEREAFTER. lidocaine (LIDODERM) 5 % Top Adhesive Patch, Medicated Place 1 Patch onto the skin every 12 hours. 20 Patch 0 losartan-hydrochlorothiazide (HYZAAR) 100-25 mg Oral Tablet Take 1 Tablet by mouth daily. metFORMIN (GLUCOPHAGE) 500 mg Oral Tablet Take 500 mg by mouth 2 times daily. metoprolol succinate (TOPROL-XL) 25 mg Oral Tablet Sustained Release 24 hr montelukast (SINGULAIR) 10 mg Oral Tablet Take by mouth every evening. nystatin (MYCOSTATIN) Top Cream Apply topically. OZEMPIC 0.25 mg or 0.5 mg (2 mg/3 mL) SubQ Pen Injector ADMINISTER 0.5 MG UNDER THE SKIN WEEKLY FOR4 WEEKS rosuvastatin (CRESTOR) 20 mg Oral Tablet Take 20 mg by mouth daily. testosterone cypionate (DEPOTESTOTERONE CYPIONATE) 200 mg/mL IM Oil Inject 50 mg into the muscle. Current Facility-Administered Medications for the 04/25/25 encounter (Office Visit) with Janice Jimenez MD Medication Dose Route Frequency Provider Last Rate Last Admin methylPREDNISolone acetate (DEPO-Medrol) injection 40 mg 40 mg Intramuscular Once methylPREDNISolone acetate (DEPO-Medrol) injection 80 mg 80 mg Intramuscular Once Objective: Vital Signs: BP 128/88 (BP Location: Left arm, Patient Position: Sitting) Temp 97.3 ??F (36.3 ??C) (Forehead) Ht 5' 9 (1.753 m) Wt 241 lb (109.3 kg) BMI 35.59 kg/m?? Body mass index is 35.59kg/m??. Physical Exam CONST: well developed, well nourished, no apparent distress EYES: pupils equal/ round/ sclera white, conjunctiva pink and moist ENT: oropharynx clear without exudates, mucus membranes moist NECK: supple without lymphadenopathy, no thyromegaly, no masses RESP: clear to auscultation bilaterally without wheezes/rhonchi/rales CV: regular rate and rhythm SKIN: no rash, no indurations, nodules, or tightening. MSK: no bony deformities/erythema/warmth/effusion of the hands/ wrists/ elbows/ shoulders/ hips/ knees/ ankles/ toes, full range of motion in the upper and lower extremities Assessment and Plan: Diagnoses and all orders for this visit: Fibromyalgia Overview: - The diagnosis of fibromyalgia was discussed, emphasizing that although it has diagnostic criteria, it is also in part a diagnosis of exclusion, and that other diagnosis will still be considered in future visits. The treatment regimen was reviewed. The limited role of medications were discussed, emphasizing that they are not curative and rarely effective alone. The importance of physical conditio faizan exercises was discussed, and in particular water conditioning or aerobic exercise was discussed as an effective and very important part of the treatment regimen. The possible association of depression, stress, and anxiety with Fibromyalgia was discussed, explaining that whether depression, stress, or anxiety is primary, or secondary to chronic pain, if present it needs to be treated. Also, the importance of sleep was discussed. - on cymbalta 90 mg daily, dose increased from 60 mg to 90 mg daily on 10/19/24 Osteoarthritis, generalized Chronic bilateral low back pain with left-sided sciatica - follows with Orthopedic surgeon director external communications current use of systemic steroids Overview: - Discussed risks and benefits of steroids (prednisone, methylprednisolone). Risks including but not limited to cardiovascular effects (hypertension, edema), electrolyte disturbances, arrhythmias (bradycardia, atrial fibrillation), FOAM CHARGER and psychiatric behavioral reactions (apathy, irritability, psychosis), Cushingnoid appearance (del rosario facies, buffalo hump), GI (weight gain, ulcers), hyperglycemia, avascular necrosis, adrenal insufficiency, osteoporosis and/or infections were discussed with the patient. - Patient understands that blood glucose (particularly if diabetic) and blood pressure should be monitored and if abnormal while on this therapy, should address immediately with primary care provider. - Patient understands that if on this therapy for prolonged period of time, it should not be abruptly stopped but rather tapered as per provider instructions. - Patient instructed to read educational material concerning medication. # Injections: - right and left knee injection -60 mg kenalog- 01/09/22 - right and left knee injection -60 mg kenalog- 04/10/22 - right and left knee injection -60 mg kenalog- 07/13/22 - right and left knee injection -60 mg kenalog- 11/04/22 - gelsyn ( first dose ) injection bilateral knees- 02/03/23 - gelsyn (second dose ) injection bilateral knees- 02/10/23 - gelsyn ( third dose ) injection bilateral knees- 02/17/23 - IM depomedrol 120 mg- 06/25/23 - IM depomedrol 120 mg- 10/07/23 - right and left knee injection - 80 mg depomedrol- 11/04/23 - right and left knee injection - 80 mg depomedrol- 02/03/24 - right knee injection - 80 mg depomedrol- 10/19/24 - left knee injection - 80 mg depomedrol- 10/23/24 - IM depomedrol 120 mg- 01/25/25 - IM depomedrol 120 mg- 04/25/25 Orders: - methylPREDNISolone acetate (DEPO-Medrol) injection 80 mg - methylPREDNISolone acetate (DEPO-Medrol) injection 40 mg Encounter for long-term (current) use of high-risk medication Primary osteoarthritis of right knee Primary osteoarthritis of left knee Osteoarthritis of cervical spine, unspecified spinal osteoarthritis complication status - XR CERVICAL SPINE AP LATERAL ODONTOID AND OBLIQUE; Future - MRI CERVICAL SPINE WO CONTRAST; Future - methylPREDNISolone acetate (DEPO-Medrol) injection 80 mg - methylPREDNISolone acetate (DEPO-Medrol) injection 40 mg - Plan: IM depomedrol 120 mg, xray cervical spine, MRI cervical spine, PT referral, will send referral to Spine surgeon based on results of MRI 120mg methylprednisolone IM given without complication. The risks of methylprednisolone were reviewed by me with the patient, including (but not limited to) weight gain, osteoporosis acceleration, bone fractures, a-vascular necrosis, elevated blood sugars, and cataract acceleration. Instructions: - IM depomedrol 120 mg- 04/25/25 - xray cervical spine, MRI cervical spine, PT referral - cymbalta 90 mg daily - RTC in 3 months This is a moderate complexity lmldqst-[id number] visit based on reviewing outside records, reviewing outside results, obtaining history and physical examination, and ordering unique testing required for the patient's evaluation and care. I reviewed symptoms, imaging findings, laboratory results, physical findings, and treatment to date. I have answered patient's questions, and patient statedsatisfaction regarding the treatment plan and recommendations. Total time 35 minutes with over 50% spent in counseling and/or coordinating care. Return in about 3 months (around 07/26/2025) for OA. * Sallie Diaz MA - 04/25/2025 1:20 PM EDT Depo Medrol injection 120 mg IM in L upper gluteus muscle. Pt tolerated well. documented in this encounter Miscellaneous Notes * Patient Instructions - Janice Jimenez MD - 04/25/2025 1:20 PM EDT - IM depomedrol 120 mg- 04/25/25 - xray cervical spine, MRI cervical spine, PT referral ( paper order ) - cymbalta 90 mg daily - RTC in 3 months documented in this encounter Plan of Treatment Upcoming Encounters Date Type Department Care Team (Late st Contact Info) Description 07/26/2025 4:00 PM EDT Office Visit [facility] [address] [place] [address] Janice Jimenez MD [address] [place] [address] Scheduled Orders Name Type Priority Associated Diagnoses Orde r Schedule MRI CERVICAL SPINE WO CONTRAST Imaging Routine Osteoarthritis of cervical spine, unspecified spinal osteoarthritis complication status 1 Occurrences starting 04/25/2025 until 04/25/2026 documented as of this encounter Results * XR CERVICAL SPINE AP LATERAL ODONTOID AND OBLIQUE (04/25/2025 2:24 PM EDT) Anatomical Region Laterality Modality C-spine Radiographic Susie ging 04/25/2025 2:24 PM EDT Impressions 04/25/2025 2:34 PM EDT Multilevel discogenic change most prominent at C6-7 with bilateral foraminal narrowing. No fracture. - Note: Radiology results need to be interpreted within a comprehensive clinical context. If you have questions about the radiology report, please contact the office of the ordering clinician. 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 FINDINGS: Reversal cervical lordosis. Vertebral height maintained. No fractures. Anterior upper central atrophic spurring at C3-4 and C4-5 without disc space narrowing. Mild disc space narrowing and spurring at C5-6 and moderate at C6-7. There is bilateral foraminal narrowing at C6-7. Prevertebral soft tissues are normal. Procedure Note Hero Collado MD - 04/25/2025 C-SPINE SERIES, 04/25/2025 2:24 PM CLINICAL HISTORY: M47.812-Spondylosis without myelopathy orradiculopathy, cervical [id number] COMPARISON: 11/17/2021 PROCEDURE COMMENTS: Minimum of 5 views of the cervical spine, includingPA, lateral, odontoid, and bilateral oblique positioning. FINDINGS: Reversal cervical lordosis. Vertebral height maintained. Nofractures. Anterior upper central atrophic spurring at C3-4 and C4-5 without discspace narrowing. Mild disc space narrowing and spurring at C5-6 and moderate atC6-7. There is bilateral foraminal narrowing at C6-7. Prevertebral soft tissues are normal. IMPRESSION: Multilevel discogenic change most prominent at C6-7 with bilateral foraminal narrowing. No fracture. - Note: Radiology results need to be interpreted within a comprehensiveclinical context. If you have questions about the radiology report, please contactthe office of the ordering clinician. Janice [facility] ORDERABLE S Final Result documented in this encounter Visit Diagnoses Diagnosis Fibromyalgia- Primary Mylagia and myositis, unspecified Osteoarthritis, generalized Generalized osteoarthrosis, unspecified site Chronic bilateral low back pain with left-sided sciatica FDC current use of systemic steroids Encounter for long-term (current) use of steroids Encounter for long-term (current) use of high-risk medication Encounter for long-term (current) use of other medications Primary osteoarthritis of right knee Primary localized osteoarthrosis, lower leg Primary osteoarthritis of left knee Primary localized osteoarthrosis, lower leg Osteoarthritis of cervical spine, unspecified spinal osteoarthritis complication status Osteoarthritis of cervical spine, unspecified spinal osteoarthritis complication status documented in this encounter Administered Medications Inactive Administered Medications - up to 1 most recent administrations Medication Order MAR Action Action Date Dose Rate Site methylPREDNISolone acetate (DEPO-Medrol) injection 40 mg 40 mg, Intramuscular, ONCE, 1 dose, On Wed04/25/25 at 1345, Dx: 1. FDC current use of systemic steroids 2. Osteoarthritis of cervical spine, unspecified spinal osteoarthritis complication statusIndications:FDC current use of systemic steroids,Osteoarthritis of cervical spine, unspecified spinal osteoarthritis complication status Given 04/25/2025 2:05 PM EDT 40 mg Left upper gluteus methylPREDNISolone acetate (DEPO-Medrol) injection 80 mg 80 mg, Intramuscular, ONCE, 1 dose, On Wed04/25/25 at 1345, Dx: 1. FDC current use of systemic steroids 2. Osteoarthritis of cervical spine, unspecified spinal osteoarthritis complication statusIndications:director external communications current use of systemic steroids,Osteoarthritis of cervical spine, unspecified spinal osteoarthritis complication status Given 04/25/2025 2:05 PM EDT 80 mg Left upper gluteus documented in this encounter Discontinued Medications Medication Sig Discontinue Reason Start Date End Da te cyclobenzaprine (FLEXERIL) 10 mg Oral Tablet Take 10 mg by mouth 3 times daily. Cancelled by 10/29/2024 04/25/2025 documented as of this encounter Historical Medications * This list may reflect changes made after this encounter. OZEMPIC 0.25 mg or 0.5 mg (2 mg/3 mL) SubQ Pen Injector ADMINISTER 0.5 MG UNDER THE SKIN WEEKLY FOR 4 WEEKS 04/11/2025 added in this encounter Care Teams Quality Improvement Coordinator (Rn) Relationship Specialty Start Date End Date Woodrow Dorsey MD [address] [place] [address] PCP - General Family Medicine 07/19/12 Janice Jimenez MD [address] [place] [address] Internal Medicine-Rheumatology 02/02/23 documented as of this encounter
--- OUTSIDE RECORDS SUMMARY | 2025-04-25 14:09 | XMS_ITS | Encounter Summary ---
Author Organization [facility] Address [facility] [place] [address] Care Team Providers Care Combustion Engineer Name Role Phone Woodrow Dorsey MD Primary Care Provider [phone] [phone] Janice Jimenez MD Unavailable Encounter Details Date Type Department Care Team (Latest Contact Info) Description 04/25/2025 2:09 PM EDT - 04/25/2025 11:59 PM EDT Hospital Encounter EDG D-WING XRAY [facility] [place] [facility] Osteoarthritis of cervical spine, unspecified spinal osteoarthritis complication status Discharge Disposition: Home or Self Care Social History Tobacco Use Types Packs/Day Years [...] on file documented as of this encounter Medications at Time of Discharge acetaminophen (TYLENOL) 650 mg Oral Tablet Sustained Release Take 2 Tablets by mouth every morning. amLODIPine (NORVASC) 5 mg Oral Tablet Take 5 mg by mouth daily. cyanocobalamin 1,000 mcg Oral Tablet 11/04/2020 DULoxetine (CYMBALTA) 30 mg Oral Capsule, Delayed Release(E.C.)Indica tions:Fibromyalgia TAKE 1 CAPSULE BY MOUTH DAILY 30 Capsule 1 03/08/2025 DULoxetine (CYMBALTA) 60 mg Oral Capsule, Delayed Release(E.C.)Indica tions:Fibromyalgia TAKE 1 CAPSULE BY MOUTH DAILY 30 Capsule 1 03/08/2025 fluticasone propionate (FLONASE) 50 mcg/actuation Nasl [place], Suspension 08/09/2020 fUROsemide (LASIX) 40 mg Oral Tablet Take 40 mg by mouth daily as needed. for swelling 01/10/2025 gabapentin (NEURONTIN) 300 mg Oral Capsule TAKE 1 CAPSULE BY MOUTH AT BEDTIME FOR 3 DAYS, THEN 1 CAPSULE TWICE DAILY FOR 3 DAYS, THEN 1 CAPSULE 3 TIMES DAILY THEREAFTER. 06/03/2024 ipratropium (ATROVENT) 42 mcg (0.06 %) Nasl [place], Non-Aerosol 2 Sprays by Nasal route 3 times daily. 15 mL 1 09/04/2021 lidocaine (LIDODERM) 5 % Top Adhesive Patch, MedicatedIndication s:Primary osteoarthritis of right knee,Chronic bilateral low back pain with left-sided sciatica Place 1 Patch onto the skin every 12 hours. 20 Patch 06/08/2024 loratadine (CLARITIN) 10 mg Oral Tablet Take 10 mg by mouth daily. 10/13/2024 losartan-hydrochlor othiazide (HYZAAR) 100-25 mg Oral Tablet Take 1 Tablet by mouth daily. 12/12/2022 metFORMIN (GLUCOPHAGE) 500 mg Oral Tablet Take 500 mg by mouth 2 times daily. 01/24/2024 metoprolol succinate (TOPROL-XL) 25 mg Oral Tablet Sustained Release 24 hr 11/19/2020 metoprolol succinate (TOPROL-XL) 50 mg Oral Tablet Sustained Release 24 hr Take 50 mg by mouth daily. 02/09/2023 montelukast (SINGULAIR) 10 mg Oral Tablet Take by mouth every evening. nystatin (MYCOSTATIN) Top Cream Apply topically. 09/07/2024 OZEMPIC 0.25 mg or 0.5 mg (2 mg/3 mL) SubQ Pen Injector ADMINISTER 0.5 MG UNDER THE SKIN WEEKLY FOR 4 WEEKS 04/11/2025 rosuvastatin (CRESTOR) 20 mg Oral Tablet Take 20 mg by mouth daily. testosterone cypionate (DEPOTESTOTERONE CYPIONATE) 200 mg/mL IM Oil Inject 50 mg into the muscle. 01/04/2024 vitamin B complex (VITAMINS B COMPLEX ORAL) Take by mouth. documented as of this encounter Discharge Disposition Disposition Code Departure Means Destination Home or Self Care documented in this encounter Plan of Treatment Upcoming Encounters Date Type Department Care Team (Late st Contact Info) Description 07/26/2025 4:00 PM EDT Office Visit [facility] [address] [place] [address] Janice Jimenez MD [address] [place] [address] documented as of this encounter Procedures Procedure Name Priority Date/Time Associated Diagnosis Comments XR CERVICAL SPINE AP LATERAL ODONTOID AND OBLIQUE Routine 04/25/2025 2:24 PM EDT Osteoarthritis of cervical spine, unspecified spinal osteoarthritis complication status documented in this encounter Results * XR CERVICAL SPINE [...] HISTORY: 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 Janice Jimenez MD IM DIAGNOSTIC IMAGING ORDERABLE S Final Result documented in this encounter Visit Diagnoses Diagnosis Osteoarthritis of cervical spine, unspecified spinal osteoarthritis complication status documented in this encounter Care Teams Combustion Engineer Relationship Specialty Start Date End Date Woodrow Dorsey MD [facility] [address] [place] [id number] PCP - General Family Medicine 07/19/12 Janice Jimenez MD [address] [place] [address] Internal Medicine-Rheumatology 02/02/23 documented as of this encounter
[2025-04-25 15:45] LABS: Alanine Aminotransferase 26 U/L (12-78); Albumin Level 4.3 g/dl (3.5-5.0); Albumin/Globulin Ratio 1.4 (1.1-1.8); Alkaline Phosphatase 55 U/L (38-126); Anion Gap 11.1 mEq/L (5-15); Aspartate Amino Transferase 28 U/L (17-59); Bilirubin,Total 0.7 mg/dl (0.2-1.3); Blood Urea Nitrogen 13 mg/dl (9-20); Calcium 9.4 mg/dl (8.4-10.2); Carbon Dioxide 28 mmol/L (22.0-30.0); Chloride 102 mmol/L (98-107); Cholesterol 123 mg/dl (140-200); Creatinine,Serum 0.80 mg/dl (0.66-1.25); Estimated Glomerular Filt Rate 101 ml/min (>60); GFR (African American) 122 ML/MIN (>60); Globulin 3.0 g/dL (1.3-3.2); Glucose 136 mg/dl (74-100); HDL Cholesterol 21 mg/dl (40-60); Potassium 5.1 mmoL/L (3.5-5.1); Sodium 136 mmol/L (136-145); Total Protein,Serum 7.3 g/dl (6.3-8.2); Triglycerides 165 mg/dl (30-150)
[2025-04-25 19:09] LABS: 25-OH Vitamin D, Total 32.5 ng/mL (30-100)
[2025-04-25 19:56] LABS: Hemoglobin A1C 7.7 % (4.0-6.0)
--- OUTSIDE RECORDS SUMMARY | 2025-04-26 15:04 | XMS_ITS | Clinical Summary ---
Author Organization [facility] Address [address] [place] [id number] Phone Care Team Providers Care Wall Insulation Sprayer Name Role Phone Tessa Hunter CNP [phone] Conditions or Problems Problem Name Problem Code Onset Date Status Entry Date Provider Comment Standard Description Annotate HERNIATED LUMBAR DISC 542248502 (SNOMED CT) 11/20 Active 11/20 Mady Zambrano MA Prolapsed lumbar intervertebral disc *AFTRCR FOLLOW SRG MUSCULOSKELETAL SYSTEM NEC Z48.89 (ICD-10-CM ) 11/26 Active 11/26 Ann Alfaro MA Encounter for other specified surgical aftercare OVERWEIGHT [id number] (SNOMED CT) 11/26 Active 11/26 Ann Alfaro MA Overweight LUMBAR RADICULOPATHY [id number] (SNOMED CT) 04/11 Active 04/11 Christine Yeung PHYSICAL CHEMISTRY TEACHER Lumbar radiculopathy BACK PAIN, LUMBAR 409808080 (SNOMED CT) 10/24 Active 10/24 Jeri Pham Low back pain Medications Medication Instructions Start Date Stop Date Generic Name [facility] Provider GABAPENTIN 300 MG CAPS Take 1 capsule by mouth three times a day 11/26 gabapentin [id number] Tessa Hunter CNP CYCLOBENZAPRINE HCL 10 MG TABS Take 1 tablet by mouth three times a day For Post-op Pain 11/26 cyclobenzaprine [id number] Tessa Hunter CNP HYDROCODONE-ACETAM INOPHEN 5-325 MG TABS Take 1-2 tablet by mouth every six hours for pain hydrocodone-aceta minophen [id number] Tessa Hunter CNP CYCLOBENZAPRINE HCL 10 MG TABS Take 1 tablet by mouth three times a day for severe pain and spasms cyclobenzaprine [id number] Tessa Hunter NAIL KEGGER GABAPENTIN 300 MG CAPS 1 capsule by mouth three times a day gabapentin [id number] Tessa Hunter NAIL KEGGER CYCLOBENZAPRINE HCL 10 MG TABS Take 1 tablet by mouth three times a day For Post-op Pain 11/26 cyclobenzaprine [id number] iDego Bailon MD OXYCODONE HCL 5 MG TABS Take 1-2 tablet by mouth every four to six hours for pain For post-op Pain oxycodone 16145121261 Diego Bailon MD GABAPENTIN 300 MG CAPS Take 1 capsule by mouth every night at bedtime 10/28 gabapentin [id number] [place] ANDERSONP GABAPENTIN 300 MG CAPS Take 1 capsule by mouth three times a day 11/26 gabapentin [id number] [place] ANDERSONP TRAMADOL HCL 50 MG TABS 1 tablet by mouth every four to six hours for pain tramadol [id number] [place] ANDERSONP GABAPENTIN 300 MG CAPS Take 1 capsule by mouth at bedtime x 3 days, 1 BID x 3 days, 1 TID there after 06/13 gabapentin [id number] Christine Yeung PHYSICAL CHEMISTRY TEACHER GABAPENTIN 300 MG CAPS Take 1 capsule by mouth every night at bedtime 12/10 gabapentin [id number] Christine Marcosian PHYSICAL CHEMISTRY TEACHER GABAPENTIN 300 MG CAPS Take 1 capsule by mouth at bedtime x 3 days, 1 BID x 3 days, 1 TID there after 06/13 gabapentin [id number] Christine Marcosian PHYSICAL CHEMISTRY TEACHER ROSUVASTATIN CALCIUM 20 MG TABS TAKE 1 TABLET BY MOUTH ONCE DAILY. rosuvastatin 65849710056 Yoselyn Corbett MA LOSARTAN POTASSIUM-HCTZ 100-25 MG TABS losartan-hydroch l orothiazide 69551177514 Yoselyn Corbett MA DULOXETINE HCL 60 MG CPEP duloxetine 93014270165 Yoselyn Corbett MA FLUTICASONE PROPIONATE 50 MCG/ACT SUSP fluticasone propionate 76170051737 Yoselyn Corbett MA TRAZODONE HCL 50 MG TABS trazodone 66526504150 Yoselyn Corbett MA TESTOSTERONE CYPIONATE 200 MG/ML SOLN testosterone cypionate [id number] Yoselyn Corbett MA ALBUTEROL SULFATE HFA 108 (90 Base) MCG/ACT AERS INHALE 2 PUFFS INTO THE LUNGS EVERY 4 TO 6 HOURS NEEDED FOR SHORTNESS OF BREATH OR WHEEZING. albuterol sulfate 24094912118 Yoselyn Corbett MA MONTELUKAST SODIUM 10 MG TABS montelukast 67469349117 Yoselyn Corbett MA METHOCARBAMOL 750 MG TABS methocarbamol 65892435085 Yoselyn Corbett MA METOPROLOL SUCCINATE ER 50 MG [id number] metoprolol succinate 61283285773 Yoselyn Corbett MA METFORMIN HCL 500 MG TABS TAKE 1 TABLET BY MOUTH TWICE DAILY. metformin 42984852688 Yoselyn Corbett MA CYCLOBENZAPRINE HCL 10 MG TABS TAKE 1 TABLET BY MOUTH 3 TIMES DAILY NEEDED FOR MUSCLE SPASMS. 04/11 cyclobenzaprine [id number] Yoselyn Corbett MA Medications Administered No information available. Allergies, Adverse Reactions, Alerts Allergy Name Reaction Description Start Date Severity Statu s Provider AMOXICILLIN Mild Yoselyn Gutierrez marta ANTELMO ASPIRIN Caused throat to swell up. Critical Yoselyn Corbett MA Results No information available. Plan of Care Type Date Detail Pending order CBC Pending order EKG Pending order Renal functional panel with BUN Pending order X-Ray Lumbar AP Lateral & Flexion/Extension Pending order ADRY x 1 therapeu tic injection & follow up with ordering MD Pending order ADRY x 1 therapeu tic injection & follow up with ordering MD Pending order MRI Lumbar witho ut Contrast Pending order MRI Lumbar witho ut Contrast Procedures Code Procedure Name Date Entry Date 87871 Evaluation - [place] [address] [place] [address] MRI Lumbar Spine Vital Signs Date Name Value Unit Description BMI (Body Mass Index) 36.91 kg/m2 Bod y Mass Index (Ratio) Weight Measured 250 [lb_av] weight E& M Weight Measured 250 [lb_av] weight E& M Height 69 [in_us] height E&M BP Diastolic 90 mm[Hg] blood pressu re, diastolic BP Systolic 138 mm[Hg] blood pressur e, systolic Body Temperature 97.7 [degF] temperat ure E&M Heart Rate 70 /min pulse rate Respiratory Rate 16 /min respirat ory rate E&M Immunizations No information available. Advance Directives No information available.
--- OUTSIDE RECORDS SUMMARY | 2025-04-26 15:05 | XMS_ITS | Clinical Summary ---
Author Organization [facility] Address [address] [place], [place] [address] [place] [address] Phone Care Team Providers Care Elementary Assistant Teacher Name Role Phone Woodrow Dorsey MD Primary Care Provider [phone] Janice Jimenez MD Unavailable Allergies Active Allergy Reactions Criticality Noted Date Comments Aspirin Swelling Medium 09/03/2021 Said throat swelled requiring steroid Penicillins 10/28/2016 Medications cyanocobalamin 1,000 mcg Oral Tablet 11/04/19 21 Active fluticasone propionate (FLONASE) 50 mcg/actuation Nasl [place], Suspension 08/09/20 20 Active metoprolol succinate (TOPROL-XL) 25 mg Oral Tablet Sustained Release 24 hr 11/19/19 21 Active vitamin B complex (VITAMINS B COMPLEX ORAL) Take by mouth. A ctive montelukast (SINGULAIR) 10 mg Oral Tablet Take by mouth every evening. Active ipratropium (ATROVENT) 42 mcg (0.06 %) Nasl [place], Non-Aerosol 2 Sprays by Nasal route 3 times daily. 15 mL 1 09/04/20 21 Active Additional Information Patient not taking.Reason: Therapy Completed, Reported on 04/25/2025 losartan-hydrochlo rothiazide (HYZAAR) 100-25 mg Oral Tablet Take 1 Tablet by mouth daily. 12/13/19 23 Active metoprolol succinate (TOPROL-XL) 50 mg Oral Tablet Sustained Release 24 hr Take 50 mg by mouth daily. 02/10/20 23 Active metFORMIN (GLUCOPHAGE) 500 mg Oral Tablet Take 500 mg by mouth 2 times daily. 01/24/20 24 Active testosterone cypionate (DEPOTESTOTERONE CYPIONATE) 200 mg/mL IM Oil Inject 50 mg into the muscle. 01/04/20 Active gabapentin (NEURONTIN) 300 mg Oral Capsule TAKE 1 CAPSULE BY MOUTH AT BEDTIME FOR 3 DAYS, THEN 1 CAPSULE TWICE DAILY FOR 3 DAYS, THEN 1 CAPSULE 3 TIMES DAILY THEREAFTER. 06/03/20 Active lidocaine (LIDODERM) 5 % Top Adhesive Patch, MedicatedIndicatio ns:Primary osteoarthritis of right knee,Chronic bilateral low back pain with left-sided sciatica Place 1 Patch onto the skin every 12 hours. 20 Patch 06/08/20 Active rosuvastatin (CRESTOR) 20 mg Oral Tablet Take 20 mg by mouth daily. Active amLODIPine (NORVASC) 5 mg Oral Tablet Take 5 mg by mouth daily. Active loratadine (CLARITIN) 10 mg Oral Tablet Take 10 mg by mouth daily. 10/13/19 Active nystatin (MYCOSTATIN) Top Cream Apply topically. 09/07/20 Active fUROsemide (LASIX) 40 mg Oral Tablet Take 40 mg by mouth daily as needed. for swelling 01/11/20 Active acetaminophen (TYLENOL) 650 mg Oral Tablet Sustained Release Take 2 Tablets by mouth every morning. Active DULoxetine (CYMBALTA) 60 mg Oral Capsule, Delayed Release(E.C.)Indic ations:Fibromyalgi a TAKE 1 CAPSULE BY MOUTH DAILY 30 Capsule 1 03/08/20 25 Active DULoxetine (CYMBALTA) 30 mg Oral Capsule, Delayed Release(E.C.)Indic ations:Fibromyalgi a TAKE 1 CAPSULE BY MOUTH DAILY 30 Capsule 1 03/08/20 Active OZEMPIC 0.25 mg or 0.5 mg (2 mg/3 mL) SubQ Pen Injector ADMINISTER 0.5 MG UNDER THE SKIN WEEKLY FOR 4 WEEKS 04/11/20 Active Hospital, Clinic, or Other Facility Administered Medication Ordered Dose Route Frequency Start Date End Date Status methylPREDNISolone acetate (DEPO-Medrol) injection 80 mgIndications:group home current use of systemic steroids,Osteoarthritis of cervical spine, unspecified spinal osteoarthritis complication status 80 mg IM ONCE 04/25/2025 04/25/2025 Ended methylPREDNISolone acetate (DEPO-Medrol) injection 40 mgIndications:group home current use of systemic steroids,Osteoarthritis of cervical spine, unspecified spinal osteoarthritis complication status 40 mg IM ONCE 04/25/2025 04/25/2025 Ended Active Problems Problem Noted Date Diagnosed Date Arthritis of both knees 08/11/2024 Bilateral knee pain 08/11/2024 Cough 08/11/2024 Dizziness 08/11/2024 Dyslipidemia 08/11/2024 Gynecomastia 08/11/2024 Hypogonadism in male 08/11/2024 Insomnia 08/11/2024 Overview (08/11/2024): Suspected multifactorial etiology including shiftwork disorder, chronic pain, osteoarthritis Left shoulder pain 08/11/2024 Right shoulder pain 08/11/2024 Left-sided low back pain with left-sided sciatic a 08/11/2024 Nipple tenderness 08/11/2024 DIMITRIS (obstructive sleep apnea) 08/11/2024 Paresthesia 08/11/2024 Seasonal allergies 08/11/2024 Sleep disorder, shift-work 08/11/2024 Type 2 diabetes mellitus with obesity 08/11/2024 Vitamin D deficiency 08/11/2024 Chronic osteoarthritis 02/02/2023 Overview (02/02/2023): - c/o joint pain worse at the end of the day, no obvious joint swelling, morning stiffness lasting for 15 min, his work involves exertional physical activities - xrays bilateral shoulders, bilateral knees and hands show OA changes - osteoarthritis, more on medial aspect both knees, improved with steroid injection - The diagnosis of osteoarthritis was discussed, along with the prognosis. Treatment options were discussed. These include physical and exercise therapy with focus on quadriceps strengthening and weight reduction, both of which have been shown to help slow the progression of degeneration and reduce pain. Symptom relief options with medications were reviewed, including NSAID and non-NSAID medication options. Injection options were reviewed, including the use of steroid injections, or visco-supplementation injections. Osteoarthritis of right knee 02/02/2023 Osteoarthritis of left knee 02/02/2023 Fibromyalgia 02/02/2023 Overview (10/23/2024): - The diagnosis of fibromyalgia was discussed, emphasizing that although it has diagnostic criteria, it is also in part a diagnosis of exclusion, and that other diagnosis will still be considered in future visits. The treatment regimen was reviewed. The limited role of medications were discussed, emphasizing that they are not curative and rarely effective alone. 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 Risks including but not limited to cardiovascular effects (hypertension, edema), electrolyte disturbances, arrhythmias (bradycardia, atrial fibrillation), [employer] and psychiatric behavioral reactions (apathy, irritability, psychosis), [...] 01/25/25 - IM depomedrol 120 mg- 04/25/25 Primary hypertension 09/04/2021 Family history of early CAD 09/04/2021 Leukocytosis 09/04/2021 Class 2 obesity due to exces s calories without serious comorbidity in adult 09/04/2021 Chest pain 09/03/2021 Encounters Date Type Department Care Team Description 04/25/2025 2:09 PM EDT - 04/25/2025 11:59 PM EDT Hospital Encounter EDG D-WING XRAY [facility] 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; Encounter for long-term (current) use of high-risk medication; Primary osteoarthritis of right knee; Primary osteoarthritis of left knee; Osteoarthritis of cervical spine, unspecified spinal osteoarthritis complication status 04/25/2025 Results Follow-Up [facility] [address] [place] [address] Janice Jimenez MD XR CERVICAL SPINE AP LATERAL ODONTOID AND OBLIQUE 03/07/2025 Refill [facility] [address] [place] [address] Janice Jimenez MD Medication Refill 01/29/2025 Telephone [facility] [address] [place] [address] Lupe Barajas MA Referral 01/25/2025 4:20 PM EDT Office Visit [facility] [address] [place] [address] Janice Jimenez MD Primary osteoarthritis of left knee (Primary Dx); Osteoarthritis, generalized; Fibromyalgia; Chronic bilateral low back pain with left-sided sciatica; group home current use of systemic steroids; Encounter for long-term (current) use of high-risk medication; Primary osteoarthritis of right knee; Obesity (BMI 35.0-39.9 without comorbidity) from Last 3 Months Immunizations Immunization Administration Dates Next Due DTaP, Unspecified Formulation 03/27/1976, 975,01/23/1975,12/11/1974 MMR 06/05/1976 Polio, Unspecified Formulation 8,03/27/1976,02/23/1975,12/21/1974,0 06/29/1973 Td, Unspecified Formulation 05/20/1989, 8 Surgical History Surgery Date Site/Laterality Comments BACK SURGERY CARPAL TUNNEL RELEASE Bilateral Medical History Medical History Date Comments Arthritis Hypertension Family History Medical History Relation Name Comments Coronary Art Dis Brother Coronary Art Dis Father Diabetes Father COPD Maternal Aunt COPD Mother Relation Name Status Comments Brother Father Maternal Aunt Alive Maternal Uncle Alive Mother Social History Tobacco Use Types Packs/Day Years Used Date Smoking Tobacco: Former Passive Smoke Exposure: Past Smokeless Tobacco: Never Tobacco Cessation:Counseling Given: Not Answered Alcohol Use Standard Drinks/Week Comments No 0 (1 standard drink = 0.6 oz pur e alcohol) Sex and Gender Information Value Date Recorded Sex Assigned at Not on file Legal Sex Male 2:14 PM EDT Gender Identity Not on file Sexual Orientation Not on file Obstetrics History Last Filed Vital Signs Vital Sign Reading Time Taken Comments Blood Pressure 128/88 04/25/2025 1:16 PM EDT Pulse 86 12/13/2024 1:40 PM EDT Temperature 36.3 C (97.3 F) 04/25/2025 1:16 PM EDT Respiratory Rate 18 12/13/2024 1:40 PM EDT Oxygen Saturation 97% 12/13/2024 1:40 PM EDT Inhaled Oxygen Concentration - - Weight 109.3 kg (241 lb) 04/25/2025 1:16 PM EDT Height 175.3 cm (5' 9 ) 04/25/2025 1:16 PM EDT Body Mass Index 35.59 04/25/2025 1:16 PM EDT Plan of Treatment Upcoming Encounters Date Type Department Care Team (Late st Contact Info) Description 07/26/2025 4:00 PM EDT [facility] [address] [place] [address] Janice Jimenez MD [address] [place] [address] Health Maintenance Due Date Last Done Comments Annual Wellness Exam 1974 Kidney Health: uACR 1981 DTaP/TDaP/Td (5 - Tdap) 05/21/1989 05/20/19 89, 05/13/1978, 03/27/1976, Additional history exists Diabetic Eye Exam 1989 Hepatitis B Vaccine (1 of 3 - 19+ 3-dose series) 1990 Pneumococcal Vaccine 50+ (1 of 2 - PCV) 1990 Cologuard 2016 Colon Cancer Screening 2016 Colonoscopy 2016 FIT 2016 Sigmoidoscopy 2016 Virtual Colonography 2016 Zoster (1 of 2) 2021 Hemoglobin A1c 03/05/2022 09/04/2021 Lipids 09/04/2022 09/04/2021 Kidney Health: eGFR 02/27/2024 02/26/2023, 11/04/2022, 09/03/2021 COVID-19 Vaccine ( season) 2024 01/28/2021, 01/07/2021 Influenza Vaccine (#1) 2025 Meningococcal B Vaccine Aged Out No l onger eligible based on patient's age to complete this topic Procedures Procedure Name Priority Date/Time Associated Diagnosis Comments XR CERVICAL SPINE AP LATERAL ODONTOID AND OBLIQUE Routine 04/25/2025 2:24 PM EDT Osteoarthritis of cervical spine, unspecified spinal osteoarthritis complication status COMPREHENSIVE METABOLIC PANEL Routine 02/26/2023 12:18 PM EDT Other elevated white blood cell (WBC) count LIPID SCREEN Routine 09/04/2021 10:26 AM EST HEMOGLOBIN A1C Routine 09/04/2021 10:26 AM EST from Last 3 Months or Most Recently Relevant to Health Maintenance Results * XR CERVICAL SPINE AP LATERAL [...] HISTORY: M47.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 Janice Jimenez MD [facility] ORDERABLE S Final Result * (ABNORMAL) COMPREHENSIVE METABOLIC PANEL (02/26/2023 12:18 PM EDT) Sodium 133(L) 136 - 145 mmol/L 02/26/2023 12:39 PM EDT [facility] Potassium 4.6 3.5 - 5.0 mmol/L 02/26/2023 12:39 PM EDT [facility] Chloride 97(L) 98 - 107 mmol/L 02/26/2023 12:39 PM EDT [facility] Total CO2 27 22 - 29 mmol/L 02/26/2023 12:39 PM EDT [facility] Anion Gap 9 7 - 16 mmol/L 02/26/2023 12:39 PM EDT [facility] Calcium 10.0 8.6 - 10.4 mg/dL 02/26/2023 12:39 PM EDT [facility] Glucose Lvl 158(H) 74 - 100 mg/dL 02/26/2023 12:39 PM EDT [facility] BUN 10 6 - 20 mg/dL 02/26/2023 12:39 PM T [facility] Creatinine 0.79 0.67 - 1.30 mg/dL 02/26/2023 12:39 PM EDT [facility] Albumin 4.5 3.5 - 5.2 gm/dL 02/26/2023 12:39 PM EDT [facility] Total Protein 7.4 6.4 - 8.3 gm/dL 02/26/2023 12:39 PM EDT [facility] Bili Total 0.2 0.1 - 1.4 mg/dL 02/26/2023 12:39 PM EDT [facility] ALT 25 <=41 U/L 02/26/2023 12:39 PM EDT [facility] AST 16 <=40 U/L 02/26/2023 12:39 PM EDT [facility] Alk Phos 53 40 - 129 U/L 02/26/2023 12:39 PM EDT [facility] eGFR (CKD-EPIcr 2020) 108 >=60 mL/min/1.7 3 m2 02/26/2023 12:39 PM EDT [facility] Comment:Estimated GFR was ca lculated using the CKD-EPIcr (2020) equation refit without race. The equation is recommended by the National Kidney Foundation - [place] Society of Nephrology Task Force. Blood VENOUS BLOOD / Unknown Venipuncture / Unknown 02/26/2023 12:18 PM EDT 02/26/2023 12:20 PM EDT us Erin Palencia MD CHEMISTRY ORDERABLES Fin al Result Performing Organization Address City/[facility]/ZIP Co de Phone Number [facility] [address] [place] [address] * (ABNORMAL) HEMOGLOBIN A1C (09/04/2021 10:26 AM EST) Hgb A1C 5.9(H) 4.2 - 5.6 % 09/04/2021 5:08 PM EST PREFERRED [facility] Est. Avg Glucose 123 mg/dL 09/04/2021 5:08 PM EST PREFERRED [facility] Blood VENOUS BLOOD / Unknown Venipuncture / Unknown 09/04/2021 10:26 AM EST 09/04/2021 11:03 AM EST Narrative [facility] - 09/04/2021 5:08 PM EST REFERENCE RANGE: Normal: 4.0-5.6% Pre-diabetes: 5.7-6.4% Provisional diagnosis of diabetes: >6.4% Hgb F>10% and anything which shortens red cell survival, such as hemolytic anemia, or unstable hemoglobin variants such as HbSS, HbSC, or HbCC, will lower the HbA1c value associated with a given level of glycemic control. us Marcela Christie APRN CHEMISTRY ORDERABLES Final Result Performing Organization Address City/[facility]/ZIP Co de Phone Number [facility] [address] , [place] [address] * (ABNORMAL) LIPID SCREEN (09/04/2021 10:26 AM EST) Cholesterol 213(H) <200 mg/dL 09/04/2021 4:57 PM EST [facility] Comment: < 200 Desirable 200 - 239 Borderline High >= 240 High Triglyceride 91 <150 mg/dL 09/04/2021 4:57 PM EST [facility] Comment: < 150 Normal 150 - 199 Borderline High 200 - 499 High >= 500 Very High HDL 28(L) >=40 mg/dL 09/04/2021 4:57 PM EST [facility] Comment: > 60 Optimal 40 - 60 Acceptable < 40 Low LDL Calculated 168(H) <100 mg/dL 09/04/2021 4:57 PM EST [employer] [facility] Comment: < 100 Optimal 100 - 129 Near or above optimal 130 - 159 Borderline High 160 - 189 High >= 190 Very High Non-HDL-C Calculated 185(H) <=129 mg/dL 09/04/2021 4:57 PM EST [employer] [facility] Comment: <130 Desirable 130-159 Above Desirable 160-189 Borderline High 190-219 High >= 220 Very High Fasting Specimen? Yes None 021 4:57 PM EST [facility] Blood VENOUS BLOOD / Unknown Venipuncture / Unknown 09/04/2021 10:26 AM EST 09/04/2021 11:03 AM EST us Marcela A Shahnaz CATHODE WASHER CHEMISTRY ORDERABLES Final Result [facility] [place], [facility] [address] , [place] [address] [facility] [address] [place] [address] from Last 3 Months or Most Recently Relevant to Health Maintenance Insurance [facility] CHO[facility] PLUS [facility] CHO[facility] PLUS [facility] PLUS Advance Directives For more information, please contact: [phone] * Full Code (Latest Code Status on File) Date Activated Date Inactivated Comments 09/04/2021 1:35 AM 09/05/2021 2:15 AM Care Teams Elementary Assistant Teacher Relationship Specialty Start Date End Date Woodrow Dorsey MD [address] [place] [address] PCP - General Family Medicine 07/19/12 Janice Jimenez MD [address] [facility] [place] [address] Internal Medicine-Rheumatology 02/02/23
--- OUTSIDE RECORDS SUMMARY | 2025-04-26 15:05 | XMS_ITS | Encounter Summary ---
Author Organization [facility] Address [address] [place] [address] Care Team Providers Care Agriculture Worker Name Role Phone Woodrow Dorsey MD Primary Care Provider [phone] Janice Jimenez MD Unavailable Encounter Details Date Type Department Care Team (Latest Contact Info) Description 04/25/2025 Results Follow-Up [facility] [address] [place] [address] Janice Jimenez MD [address] [place] [address] XR CERVICAL SPINE AP LATERAL ODONTOID AND OBLIQUE Social History Tobacco Use Types Packs/Day Years [...] on file documented as of this encounter Progress Notes * Janice Jimenez MD - 04/25/2025 4:31 PM EDT - xray cervical spine-Multilevel discogenic change most prominent at C6-7 with bilateral foraminal narrowing. No fracture. documented in this encounter Plan of Treatment Upcoming Encounters Date Type Department Care Team (Late st Contact Info) Description 07/26/2025 4:00 PM EDT Office Visit [facility] [address] [place] [address] Janice Jimenez MD [address] [facility] [place] [address] documented as of this encounter Visit Diagnoses Not on filedocumented in this encounter Care Teams Agriculture Worker Relationship Specialty Start Date End Date Woodrow Dorsey MD [address] [place] [facility] [address] [place] [address] PCP - General Family Medicine 07/19/12 Janice Jimenez MD [address] [facility] [place] [address] Internal Medicine-Rheumatology 02/02/23 documented as of this encounter
--- OUTSIDE RECORDS SUMMARY | 2025-04-26 15:05 | XMS_ITS | Encounter Summary ---
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 Name Role Phone Woodrow Dorsey MD Primary Care Provider [phone] Janice Jimenez MD Unavailable Reason for Visit * Reason Comments Medication Refill Encounter Details Date Type Department Care Team (Late st Contact Info) Description 03/07/2025 Refill [facility] [address] [place] [address] Janice Jimenez MD [address] [place], [place] [id number] Medication Refill Social History Tobacco Use Types Packs/Day Years [...] on file documented as of this encounter Ordered Prescriptions Prescription Sig Dispense Quantity Refills Last Filled Start Date End Date DULoxetine (CYMBALTA) 30 mg Oral Capsule, Delayed Release(E.C.)Indic ations:Fibromyalgi a TAKE 1 CAPSULE BY MOUTH DAILY 30 Capsule 1 03/08/2025 DULoxetine (CYMBALTA) 60 mg Oral Capsule, Delayed Release(E.C.)Indic ations:Fibromyalgi a TAKE 1 CAPSULE BY MOUTH DAILY 30 Capsule 1 03/08/2025 documented in this encounter Miscellaneous Notes * Telephone Encounter - Mary Melara MA - 03/08/2025 10:52 AM EDT Refill requests for Duloxetine 30mg and Duloxetine 60mg Both refilled 01/22/25 for 30 days Last appt 01/25/25 Notes state: on cymbalta 90 mg daily, dose increased from 60 mg to 90 mg daily on 10/19/24 -RTC in 3 months Next appt 04/26/25 Refilled for 30 days and 1 RF each strength documented in this encounter Plan of Treatment Upcoming Encounters Date Type Department Care Team (Late st Contact Info) Description 07/26/2025 4:00 PM EDT Office Visit [facility] [address] [place] [address] Janice Jimenez MD [address] [place] [address] documented as of this encounter Visit Diagnoses Diagnosis Fibromyalgia Mylagia and myositis, unspecified documented in this encounter Discontinued Medications Medication Sig Discontinue Reason Start Date End Da te DULoxetine (CYMBALTA) 60 mg Oral Capsule, Delayed Release(E.C.)Indications :Fibromyalgia Take 1 Capsule by mouth daily. DELETE-Duplicate 09/12/2024 03/08/2025 DULoxetine (CYMBALTA) 60 mg Oral Capsule, Delayed Release(E.C.)Indications :Fibromyalgia Take 1 Capsule by mouth daily. 10/19/2024 03/08/2025 DULoxetine (CYMBALTA) 30 mg Oral Capsule, Delayed Release(E.C.)Indications :Fibromyalgia TAKE 1 CAPSULE BY MOUTH DAILY 01/22/2025 03/08/2025 documented as of this encounter Care Teams Straight Knife Machine Cutter Relationship Specialty Start Date End Date Woodrow Dorsey MD [address] [facility] [address] [facility] [place] [id number] PCP - General Family Medicine 07/19/12 Janice Jimenez MD [address] [place] [address] Internal Medicine-Rheumatology 02/02/23 documented as of this encounter
[2025-04-27 08:14] LABS: Testosterone,Total 934 ng/dL (264-916)
== END 2025-04-25 23:59 | disposition home or self-care (01) ==
LOC: LAB.DROPOF 04-26 15:03
PROVIDERS: PCP Nurse Practitioner; Visit Provider Nurse Practitioner
DX: E11.69 Type 2 diabetes mellitus with other specified complication (principal); E66.9 Obesity, unspecified; E78.5 Hyperlipidemia, unspecified; I10 Essential (primary) hypertension; E53.9 Vitamin B deficiency, unspecified; M79.7 Fibromyalgia
CPT/HCPCS: 80053; 80061; 82306; 83036; 84403